=== PATIENT | male | born 1965 | race Caucasian/White ===

== ENCOUNTER 2024-04-27 10:48 | Emergency (ER) | payer OTHER ==
[2024-04-27 11:10] VITALS: BP 128/98; PULSE 97; TEMP 98.6; O2SAT 97
[2024-04-27] MEDS: TORAdol 30 mg Injection IM ONE (11:19)
[2024-04-27] MEDS ORDERED: DECADRON 10MG INJ. ONE (11:19)
[2024-04-27] MEDS ORDERED: TORAdol 30 mg Injection ONE (11:19)
[2024-04-27] MEDS: DECADRON 10MG INJ. IM ONE (11:20)
--- NOTE | 2024-04-27 11:22 | ERPHSYRPT ---
- History of Present Illness Time Seen by Provider: 04/27/24 11:17 Source: patient Exam Limitations: no limitations Patient Subjective Stated Complaint: sciatica Triage Nursing Assessment: Pt brought to the ER by family, vitals wnl, rates pain as 02/25, hx of sciatica, hx of 6 back surgeries, pt has a morphine pump that helps his back pain but doesn't touch the sciatica pain, pulses normal, skin n/w/d, no difficulty breathing, walked in with a cane, appears to be in moderate pain Physician History: 58-year-old male history of chronic low back pain receives his care at [facility], sees a pain specialist on a pain contract present to our ED for evaluation of acute on chronic low back pain. Patient reports back pain radiates into his left buttock area. No trauma no fever no recent back procedure no change in bowel bladder function. Symptoms are moderate in intensity. Patient is ambulatory. Patient has a external morphine pain pump at this time. Patient otherwise feels well. No urinary symptomology. No dysuria hematuria frequency urgency. Portions of this note were created with voice recognition technology. There may be grammatical, spelling, punctuation or sound alike errors Timing/Duration: today Method of Injury: unknown Quality: radiating Back Pain Location: lumbar spine Back Pain Radiation: buttocks Severity of Pain-Max: moderate Severity of Pain-Current: moderate Modifying Factors: Improves With: nothing Associated Symptoms: denies symptoms Previous symptoms: same symptoms as today Allergies/Adverse Reactions: gabapentin Allergy (Verified 04/27/24 11:10) Home Medications: Amlodipine Besylate 5 mg [Norvasc 5 mg] 5 mg PO DAILY 04/27/24 [History] Hydrochlorothiazide 25 mg [hydroDIURIL 25 MG] 25 mg PO DAILY 04/27/24 [History] Lisinopril 20 mg [Zestril 20 MG] 20 mg PO DAILY 04/27/24 [History] Potassium Chloride 10 meq PO UD PRN 04/27/24 [History] Hx Influenza Vaccination/Date Given: Yes Hx Pneumococcal Vaccination/Date Given: Yes Travel Risk - International Travel Have you traveled outside of the country in past 3 weeks: No - Emerging Infectious Disease Are you exhibiting symptoms associated with any current EIDs: No - Review of Systems Constitutional: No Symptoms, No Fever, No Chills Eyes: No Symptoms Ears, Nose, & Throat: No Symptoms Respiratory: No Symptoms, No Cough, No Dyspnea Cardiac: No Symptoms, No Chest Pain, No Edema, No Syncope Abdominal/Gastrointestinal: No Symptoms, No Abdominal Pain, No Nausea, No Vomiting, No Diarrhea Genitourinary Symptoms: No Symptoms, No Dysuria Musculoskeletal: No Symptoms, No Back Pain, No Neck Pain Skin: No Symptoms, No Rash Neurological: No Symptoms, No Dizziness, No Focal Weakness, No Sensory Changes Psychological: No Symptoms Endocrine: No Symptoms Hematologic/Lymphatic: No Symptoms Immunological/Allergic: No Symptoms All Other Systems: Reviewed and Negative - Past Medical History Pertinent Past Medical History: Yes Cardiac History: High Cholesterol, Hypertension Psycho-Social History: Depression Other Medical History: vit d def, low test - Past Surgical History Past Surgical History: Yes Musculoskeletal: Orthopedic Surgery Other Surgical History: 6 back surgeries, fusion in neck and mid back, right foot pins and screws, throat surgery, uvula removed, sinus surgery - Social History Smoking Status: Current every day smoker Exposure to second hand smoke: Yes Drug Use: none - Social Determinants of Health Will the patient participate in the screening: Yes Do you worry about a steady place to live?: No Do you have any problems with any of the following?: No known problems In the past 12 months,have you had to go without utilities?: No Transportation Issues: No Has anyone in your support network made you feel unsafe?: No Have you or anyone in your house had to go without enough: No - Nursing Vital Signs Nursing Vital Signs: Initial Vital Signs Temperature 98.6 F 04/27/24 10:59 Pulse Rate 97 H 04/27/24 10:59 Blood Pressure 128/98 04/27/24 10:59 O2 Sat by Pulse Oximetry 97 04/27/24 10:59 Pain Scale Pain Intensity [Left Back] 10 Pain Intensity 10 - Physical Exam General Appearance: no apparent distress, alert Eye Exam: PERRL/EOMI, eyes nml inspection Neck Exam: normal inspection, non-tender, supple, full range of motion, No meningismus, No midline tenderness Respiratory Exam: normal breath sounds, lungs clear, airway intact, No respiratory distress Cardiovascular Exam: regular rate/rhythm, normal heart sounds Gastrointestinal Exam: soft, No tenderness, No mass Back Exam: other (Tenderness palpation low back just over the left SI joint. 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, normal mood/affect, other (Patient ambulates with a cane), No motor deficits Skin Exam: normal color, warm, dry, No rash SpO2 Interpretation: normal SpO2: 97 O2 Delivery: Room Air - Course Nursing assessment & vital signs reviewed: Yes Ordered Tests: Medication Summary Discontinued Medications Generic Name Dose Route Start Last Admin Trade Name Shelly PRN Reason Stop Dose Admin Dexamethasone Sodium Phosphate 10 mg 04/27/24 11:17 04/27/24 11:20 Dexamethasone Sod Phosphate 10 Mg/Ml IM 04/27/24 11:18 10 mg STAT ONE Administration Dexamethasone Sodium Phosphate Confirm 04/27/24 11:19 Dexamethasone Sod Phosphate 10 Mg/Ml Administered 04/27/24 11:20 Dose 10 mg .ROUTE .STK-MED ONE Ketorolac Tromethamine 60 mg 04/27/24 11:16 04/27/24 11:19 Ketorolac Tromethamine 30 Mg/Ml Inj IM 04/27/24 11:17 60 mg STAT ONE Administration Ketorolac Tromethamine Confirm 04/27/24 11:19 Ketorolac Tromethamine 30 Mg/Ml Inj Administered 04/27/24 11:20 Dose 60 mg .ROUTE .STK-MED ONE - Progress Progress: improved Progress Note: 58-year-old male presents to our ED for evaluation of acute on chronic low back pain. No trauma no fever no systemic manifestations. No indication for imaging studies at this time. Patient has a morphine pain pump. Patient received 10 mg of Decadron and 60 mg of IM Toradol. Patient reassessed he appears to be comfortable. Patient states he prefers to go home and rest. Patient discharged. Prescription for Toradol forwarded to patient's pharmacy. [facility]. Significant other at bedside. They voiced no other complaints or concerns at this time. Portions of this note were created with voice recognition technology. There may be grammatical, spelling, punctuation or sound alike errors Complexity of problem addressed is moderate acute complicated no critical care time complex of data reviewed and analyzed is none. No specialized testing ordered. Diagnosis made based on history and physical exam. Risk of complication and or risk of morbidity/mortality of patient management is moderate. A prescription for Toradol forwarded to patient's pharmacy. Vital stable. Time spent to discharge patient is approximately 10 to 15 minutes. Plan of care established for shared decision making. No social determinants of health present to impede follow-up. Portions of this note were created with voice recognition technology. There may be grammatical, spelling, punctuation or sound alike errors 04/27/24 11:46 Counseled pt/family regarding: diagnosis, need for follow-up - Departure Departure Disposition: Home Clinical Impression: Sciatica, Lumbosacral strain Condition: Stable Critical Care Time: No Referrals: [facility] [Primary Care Provider] - Follow up/PCP as directed Additional Instructions: Discharge/Care Plan MOIZ HELM was seen on 04/27/24 in the Emergency Room. The patient was counseled regarding Diagnosis,Lab results, Imaging studies, need for follow up and when to return to the Emergency Room. Prescriptions given: Discharge Note I have spoken with the patient and/or caregivers. I have explained the patient's condition, diagnosis and treatment plan based on the information available to me at this time. I have answered the patient's and/or caregiver's questions and addressed any concerns. The patient and/or caregivers have as good understanding of the patient's diagnosis, condition and treatment plan as can be expected at this point. The vital signs have been stable. The patient's condition is stable and appropriate for discharge from the emergency department. The patient will pursue further outpatient evaluation with the primary care physician or other designated or consulting physician as outlined in the discharge instructions. The patient and/or caregivers are agreeable to this plan of care and follow-up instructions have been explained in detail. The patient and/or caregivers have received these instruction. The patient/and or caregivers are aware that any significant change in condition or worsening of symptoms should prompt an immediate return to this or the closest emergency department or call 911. Prescriptions: Ketorolac Trometh 10 mg Tab [TORAdol 10 MG TABLET] 10 mg PO TID 5 Days #15 tablet
== END 2024-04-27 11:59 | disposition home or self-care (01) ==
LOC: ED 10:48
DX: M54.42 Lumbago with sciatica, left side (principal); S39.012A Strain of muscle, fascia and tendon of lower back, initial encounter
CPT/HCPCS: 96372; 99283; J1100; J1885

== ENCOUNTER 2024-07-13 15:34 | Emergency (ER) | payer OTHER ==
[2024-07-13 16:00] VITALS: RESP 18; TEMP 97.1; O2SAT 97
[2024-07-13] MEDS ORDERED: DECADRON 10MG INJ. ONE (16:07)
[2024-07-13] MEDS ORDERED: TORAdol 30 mg Injection ONE (16:07)
[2024-07-13] MEDS: TORAdol 30 mg Injection IM ONE (16:08)
[2024-07-13] MEDS: DECADRON 10MG INJ. IM ONE (16:09)
--- NOTE | 2024-07-13 16:10 | ERPHSYRPT ---
- History of Present Illness Time Seen by Provider: 07/13/24 16:05 Source: patient Exam Limitations: no limitations Patient Subjective Stated Complaint: pt states that his sciatic pain is worse today Triage Nursing Assessment: pt ambulate with cane into the er; pt is axo x4; c/o BLE, worse in the left leg; pt state 10/10 pain to BLE; skin PDW; no respiratory distress present; tachycardic Physician History: 58-year-old male history of sciatica presents to our ED for sciatic pain. Patient states he is scheduled to undergo a spinal fusion. Patient's symptoms today are typical of his usual sciatica back pain. Pain radiates down his left leg. Patient rates his pain 10 out of 10. Certain positions and movements cause pain to radiate down both legs. No trauma no fever no saddle anesthesia no change in bowel bladder function no recent spinal procedures. Patient otherwise feels well. He voices no other complaints or concerns at this time. Patient is scheduled to see his pain specialist in [place] within the next week Portions of this note were created with voice recognition technology. There may be grammatical, spelling, punctuation or sound alike errors Timing/Duration: today Severity: moderate Modifying Factors: Improves With: movement Associated Symptoms: denies symptoms Allergies/Adverse Reactions: gabapentin Allergy (Verified 07/13/24 15:46) Home Medications: Amlodipine Besylate 5 mg [Norvasc 5 mg] 5 mg PO DAILY 04/27/24 [History] Hydrochlorothiazide 25 mg [hydroDIURIL 25 MG] 25 mg PO DAILY 04/27/24 [History] Lisinopril 20 mg [Zestril 20 MG] 20 mg PO DAILY 04/27/24 [History] Potassium Chloride 10 meq PO UD PRN 04/27/24 [History] Hx Tetanus, Diphtheria Vaccination/Date Given: Yes Hx Influenza Vaccination/Date Given: Yes Hx Pneumococcal Vaccination/Date Given: Yes Travel Risk - International Travel Have you traveled outside of the country in past 3 weeks: No - Emerging Infectious Disease Are you exhibiting symptoms associated with any current EIDs: No - Review of Systems Constitutional: No Symptoms, No Fever, No Chills Eyes: No Symptoms Ears, Nose, & Throat: No Symptoms Respiratory: No Symptoms, No Cough, No Dyspnea Cardiac: No Symptoms, No Chest Pain, No Edema, No Syncope Abdominal/Gastrointestinal: No Symptoms, No Abdominal Pain, No Nausea, No V omiting, No Diarrhea Genitourinary Symptoms: No Symptoms, No Dysuria Musculoskeletal: No Symptoms, No Back Pain, No Neck Pain Skin: No Symptoms, No Rash Neurological: No Symptoms, No Dizziness, No Focal Weakness, No Sensory Changes Psychological: No Symptoms Endocrine: No Symptoms Hematologic/Lymphatic: No Symptoms Immunological/Allergic: No Symptoms All Other Systems: Reviewed and Negative - Past Medical History Pertinent Past Medical History: Yes Cardiac History: High Cholesterol, Hypertension Psycho-Social History: Depression Other Medical History: vit d def, low test - Past Surgical History Past Surgical History: Yes Musculoskeletal: Orthopedic Surgery Other Surgical History: 6 back surgeries, fusion in neck and mid back, right foot pins and screws, throat surgery, uvula removed, sinus surgery - Social History Smoking Status: Current every day smoker Exposure to second hand smoke: Yes Drug Use: none - Social Determinants of Health Will the patient participate in the screening: Yes Do you worry about a steady place to live?: No Do you have any problems with any of the following?: No known problems In the past 12 months,have you had to go without utilities?: No Transportation Issues: No Has anyone in your support network made you feel unsafe?: No Have you or anyone in your house had to go w/o enough food: No - Nursing Vital Signs Nursing Vital Signs: Initial Vital Signs Temperature 97.1 F 07/13/24 15:48 Pulse Rate 120 H 07/13/24 15:48 Respiratory Rate 18 07/13/24 15:48 Blood Pressure 145/90 07/13/24 15:48 O2 Sat by Pulse Oximetry 97 07/13/24 15:48 Pain Scale Pain Intensity 10 - Physical Exam General Appearance: no apparent distress, alert Eye Exam: PERRL/EOMI, eyes nml inspection Ears, Nose, Throat Exam: normal ENT inspection, moist mucous membranes Neck Exam: normal inspection, full range of motion Respiratory Exam: normal breath sounds, lungs clear, airway intact, No respiratory distress Cardiovascular Exam: regular rate/rhythm, normal heart sounds, normal peripheral pulses Gastrointestinal/Abdomen Exam: soft, normal bowel sounds, No tenderness, No mass Back Exam: normal inspection, normal range of motion, No CVA tenderness, No vertebral tenderness Extremity Exam: normal inspection, normal range of motion, pelvis stable Neurologic Exam: alert, oriented x 3, cooperative, normal mood/affect, sensation nml, No motor deficits Skin Exam: normal color, warm, dry, No rash Lymphatic Exam: No adenopathy SpO2 Interpretation: normal SpO2: 97 O2 Delivery: Room Air - Course Nursing assessment & vital signs reviewed: Yes Ordered Tests: Medication Summary Discontinued Medications Generic Name Dose Route Start Last Admin Trade Name Shelly PRN Reason Stop Dose Admin Dexamethasone Sodium Phosphate 10 mg 07/13/24 16:03 Dexamethasone Sod Phosphate 10 Mg/Ml IM 07/13/24 16:04 STAT ONE Ketorolac Tromethamine 60 mg 07/13/24 16:04 Ketorolac Tromethamine 30 Mg/Ml Inj IM 07/13/24 16:05 STAT ONE - Progress Progress: improved Progress Note: 58-year-old male presents to our ED for exacerbation of his chronic low back pain/sciatica. Patient requesting Decadron and Toradol. Decadron and Toradol administered. Patient reassessed. Pain improved. Patient will follow-up with his pain doctor this week. No indication for further workup at this time. Will discharge home. Patient agrees to follow-up as discussed. He voices no other complaints or concerns at this time. Portions of this note were created with voice recognition technology. There may be grammatical, spelling, punctuation or sound alike errors Complexity of problem addressed is moderate acute complicated no critical care time. Complexity of data reviewed and analyzed is none. No specialized testing ordered. Diagnosis made based on history and physical exam. Risk of complication and or risk of morbidity/mortality of patient management is low. Vital stable. Time spent to discharge patient is approximately 15 minutes. Plan of care established for shared decision making. No social determinants of health present to impede follow-up. Portions of this note were created with voice recognition technology. There may be grammatical, spelling, punctuation or sound alike errors 07/13/24 16:11 Counseled pt/family regarding: diagnosis, need for follow-up - Departure Departure Disposition: Home Clinical Impression: Sciatica Condition: Stable Critical Care Time: No Referrals: [facility] [Primary Care Provider] - Follow up/PCP as directed Additional Instructions: Discharge/Care Plan MOIZ HELM was seen on 07/13/24 in the Emergency Room. The patient was counseled regarding Diagnosis,Lab results, Imaging studies, need for follow up and when to return to the Emergency Room. Prescriptions given: Discharge Note I have spoken with the patient and/or caregivers. I have explained the patient's condition, diagnosis and treatment plan based on the information available to me at this time. I have answered the patient's and/or caregiver's questions and addressed any concerns. The patient and/or caregivers have as good understanding of the patient's diagnosis, condition and treatment plan as can be expected at this point. The vital signs have been stable. The patient's condition is stable and appropriate for discharge from the emergency department. The patient will pursue further outpatient evaluation with the primary care physician or other designated or consulting physician as outlined in the discharge instructions. The patient and/or caregivers are agreeable to this plan of care and follow-up instructions have been explained in detail. The patient and/or caregivers have received these instruction. The patient/and or caregivers are aware that any significant change in condition or worsening of symptoms should prompt an immediate return to this or the closest emergency department or call 911.
[2024-07-13 16:33] VITALS: BP 134/81; PULSE 114
== END 2024-07-13 16:29 | disposition home or self-care (01) ==
LOC: ED 15:34
DX: M54.32 Sciatica, left side (principal); E78.5 Hyperlipidemia, unspecified; I10 Essential (primary) hypertension; Z79.899 Other long term (current) drug therapy; Z72.0 Tobacco use
CPT/HCPCS: 96372; 99283; 99284; J1100; J1885